=== PATIENT | male | born 2000 | race Caucasian/White ===

== ENCOUNTER 2018-02-07 21:05 | Emergency (ER) | payer OTHER ==
[2018-02-07] MEDS ORDERED: Ondansetron ODT 4 MG TAB ONE (22:11)
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
== END 2018-02-07 22:55 | disposition home or self-care (01) ==
LOC: ERS 21:05
DX: S06.0X0A Concussion without loss of consciousness, initial encounter (principal); S16.1XXA Strain of muscle, fascia and tendon at neck level, initial encounter; F17.210 Nicotine dependence, cigarettes, uncomplicated; F17.220 Nicotine dependence, chewing tobacco, uncomplicated; V49.9XXA Car occupant (driver) (passenger) injured in unspecified traffic accident, initial encounter
CPT/HCPCS: 70450; 72125; Q0162

== ENCOUNTER 2018-08-06 01:26 | Emergency (ER) | payer OTHER ==
[2018-08-06] MEDS ORDERED: Metoclopramide HCl 10 MG/2 ML VIAL ONE (03:53)
[2018-08-06] MEDS ORDERED: diphenhydrAMINE 50 MG/ML VIAL ONE (03:53)
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
--- NOTE | 2018-08-08 17:06 | EKG ---
Test Reason : Blood Pressure : / mmHG Vent. Rate : 058 BPM Atrial Rate : 058 BPM P-R Int : 176 ms QRS Dur : 100 ms QT Int : 406 ms P-R-T Axes : 040 039 034 degrees QTc Int : 398 ms Sinus bradycardia with sinus arrhythmia Otherwise normal ECG Confirmed by GOYO BURNETTE ([id number]), image editor KHARI GALLOWAY ([id number]) on 08/08/2018 5:06:26 PM Referred By: Confirmed By:GOYO BURNETTE
== END 2018-08-06 05:46 | disposition home or self-care (01) ==
LOC: ERS 01:26
DX: R51 Headache (principal); F17.290 Nicotine dependence, other tobacco product, uncomplicated
CPT/HCPCS: 70450; 72125; 93005; 96361; 96374; 96375; J1200; J2765